=== PATIENT | female | born 2000 | race Two or more races ===

== ENCOUNTER 2022-10-11 13:45 | Emergency (ER) | payer OTHER ==
[~2022-10-11] VITALS: Ht 162.6 cm; Wt 62.6 kg
[2022-10-11] MEDS ORDERED: CEPHALEXIN500 MG PO (18:24)
== END 2022-10-11 18:39 | disposition home or self-care (01) ==
LOC: ER 13:45
DX: O23.31 Infections of other parts of urinary tract in pregnancy, first trimester (principal); N39.0 Urinary tract infection, site not specified; Z3A.09 9 weeks gestation of pregnancy